=== PATIENT | male | born 1990 | race Caucasian/White ===

== ENCOUNTER 2018-05-05 09:21 | Day surgery (SDC) | payer OTHER ==
[2018-04-28 12:27] VITALS: BMI 28.5
--- NOTE | 2018-05-05 11:19 | OP ---
Operative Note - Note: Operative Date: 05/05/18 Pre-Operative Diagnosis: left knee medial meniscal tear Operation: left knee arthroscopy with partial medial menisectomy Post-Operative Diagnosis: Same as Pre-op Surgeon: Arvind Flaherty Operative Report Dictated: Yes
[2018-05-05] MEDS ORDERED: BUPIVACAINE HCL/PF 2.5 MG/ML - 30 ML VIAL IJ ONE (11:27)
[2018-05-05] MEDS ORDERED: BUPIVACAINE HCL/PF 0.25% (2.5MG/ML) 10 ML VIAL IJ ONE (12:10)
[2018-05-05] MEDS ORDERED: ONDANSETRON 4 MG/2 ML VIAL IVPUSH ONE (13:00)
[2018-05-05] MEDS ORDERED: ONDANSETRON 4 MG/2 ML VIAL ONE (13:02)
--- NOTE | 2018-05-05 13:24 | OP ---
DATE OF OPERATION: 05/05/2018 PREOPERATIVE DIAGNOSIS: Left medial meniscal tear. POSTOPERATIVE DIAGNOSIS: Left medial meniscal tear. PROCEDURE: Left knee arthroscopy with partial medial meniscectomy. SURGEON: Arvind Flaherty MD ANESTHESIA: General. POSTOPERATIVE CONDITION: Stable. COMPLICATIONS: None. INDICATIONS: This is a pleasant, 27-year-old gentleman who has been suffering from medial knee pain. MRI demonstrated bucket-handle medial meniscal tear. Treatment options including nonoperative versus operative management were reviewed. Operative risks were reviewed in detail including bleeding, infection, neurovascular injury, need for further surgery, postoperative pain and stiffness, progression of osteoarthritis. We discussed that meniscal repair would be a preferable treatment for this lesion. However, given the chronicity of his tear, the chance of successful meniscal repair was quite small. Patient voiced understanding. We also discussed medical risks such as heart attack, stroke, DVT, PE, and . I reviewed the postoperative rehabilitation. Patient voiced understanding again and elected to proceed. DESCRIPTION OF PROCEDURE: Patient was brought to the operating room where general anesthesia was administered. The left lower extremity was then prepped and draped in the usual sterile fashion. A preoperative dose of antibiotics was given, and the usual timeout procedure was performed. The standard portals were now marked out, injected subcutaneously with 0.25% Marcaine. An 11-blade was now used to establish a lateral portal. The arthroscope was passed into the knee. Examination of the patellofemoral joint demonstrated no lesions. Passing the arthroscope down to the notch demonstrated intact ACL and PCL. The arthroscope was now passed into the medial compartment. Here, medial portal was established under spinal needle localization. It should be noted that the meniscus was noted inside the notch. Examination of the medial joint demonstrated smoothing of the junction of the anterior horn of the meniscus and the bucketed segments. This was consistent with chronic tear. A probe was passed into the joint to try to reduce the meniscus. While I was able to pop it back into a more-reduced position, given its shape change, it did not lie smoothly within the joint. In addition, there was a large prominence at the hinge, which would have prevented proper reduction. The decision here was made to perform meniscectomy. Utilizing a combination of meniscal biters and a shaving device, the meniscus was debrided down to a stable base. The arthroscope was now passed into the lateral compartment. Here, no meniscal or articular lesions were seen. A probe was passed, and the meniscus was found to be stable. At this point, the excess fluid was withdrawn from the joint. The portals were sutured using 3-0 nylon. Sterile dressings were placed. Patient was extubated, transferred to recovery room in stable condition. Anne BERRIOS/[id number]
[2018-05-05 14:21] VITALS: TEMP 97.8
[2018-05-05 15:03] VITALS: BP 120/82; PULSE 62
[2018-05-05] MEDS ORDERED: oxyCODONE HCL 5 MG TABLET PO PRN (15:03)
[2018-05-05] MEDS ORDERED: ONDANSETRON 4 MG/2 ML VIAL IVPUSH PRN (15:03)
[2018-05-05] MEDS ORDERED: LACTATED RINGERS SOLUTION 1,000 ML IV SCH (15:15)
== END 2018-05-05 15:00 | disposition home or self-care (01) ==
LOC: FASU 09:21
PROVIDERS: ATTEND Orthopaedic Surgery Sports Medicine
PROC: 0SBD4ZZ Excision of Left Knee Joint, Percutaneous Endoscopic Approach (ICD-10-PCS; principal; 2018-05-05 10:30)
DX: S83.242A Other tear of medial meniscus, current injury, left knee, initial encounter (principal); X58.XXXA Exposure to other specified factors, initial encounter; Y93.9 Activity, unspecified; Y92.9 Unspecified place or not applicable
CPT/HCPCS: 94760

== ENCOUNTER 2019-04-28 08:33 | Emergency (ER) | payer OTHER ==
[2019-04-28 08:46] VITALS: BP 118/81; PULSE 75; TEMP 98.3; BMI 29.2
--- NOTE | 2019-04-28 08:47 | PDOC ---
History of Present Illness - General Chief Complaint: Injury Stated Complaint: POSSIBLE RIGHT ANKLE SPRAIN Time Seen by Provider: 04/28/19 08:42 History Source: Patient (Patient walked in complaining of right ankle pain since 4 days ago) Exam Limitations: No Limitations - History of Present Illness Is this a multiple visit Asthma Patient?: No Severity: mild, moderate Modifying Factors: improves with: cold therapy, rest Past History - Travel Traveled outside of the country in the last 30 days: No Close contact w/someone who was outside of country & ill: No - Past Medical History Allergies/Adverse Reactions: Allergies Allergy/AdvReac Type Severity Reaction Status Date / Time No Known Allergies Allergy Verified 04/28/19 08:34 Home Medications: Ambulatory Orders NK [No Known Home Medication] 04/28/19 Anemia: No Asthma: No Cancer: No Cardiac Disorders: No CVA: No COPD: No CHF: No Dementia: No Diabetes: No GI Disorders: No Disorders: No HTN: No Hypercholesterolemia: No Liver Disease: No Seizures: No Thyroid Disease: No - Immunization History Td Vaccination: No TDAP Vaccination: No Immunization Up to Date: No - Psycho Social/Smoking Cessation Hx Smoking History: Current every day smoker Have you smoked in the past 12 months: Yes Number of Cigarettes Smoked Daily: 10 Hx Alcohol Use: Yes (ONCE PER WEEK) Drug/Substance Use Hx: Yes (MARIJUANA 4X/PER WEEK) Substance Use Type: Alcohol, Marijuana Review of Systems - Review of Systems Able to Perform ROS?: Yes Is the patient limited [place] proficient: Yes Constitutional: No: Symptoms Reported, See HPI, Chills, Diaphoresis, Fever, Loss of Appetite, Malaise, Night Sweats, Weakness, Weight Stable, Unintentional Wgt. Loss, Unexplained wgt Loss, Other HEENTM: No: Symptoms Reported, See HPI, Eye Pain, Blurred Vision, Tearing, Recent change in vision, Double Vision, Cataracts, Ear Pain, Ocular Prothesis, Ear Discharge, Nose Pain, Nose Congestion, Tinnitus, Nose Bleeding, Hearing Loss , Throat Pain, Throat Swelling, Mouth Pain, Dental Problems, Difficulty Swallowing, Mouth Swelling, Other ABD/GI: No: Symptoms Reported, See HPI, Abdominal Distended, Abd. Pain w/ defecation, Blood Streaked Bowels, Constipated, Diarrhea, Difficulty Swallowing , Nausea, Poor Appetite, Poor Fluid Intake, Rectal Bleeding, Vomiting, Indigestion, Abdominal cramping, Tarry Stools, Other Musculoskeletal: Yes: See HPI, Joint Pain Integumentary: Yes: Symptoms Reported, Other (Abrasion right lateral maleola ) *Physical Exam - Physical Exam General Appearance: Yes: Nourished, Appropriately Dressed, Mild Distress, Moderate Distress HEENT: positive: CHARITO Neck: positive: Supple Vascular Pulses: Dorsalis-Pedis (R): 4+, Doralis-Pedis (L): 4+ Musculoskeletal: positive: Other (Pain right ankle) Extremity: positive: Normal Capillary Refill, Swelling (Mild to moderate swelling right ankle lateral aspect) Integumentary: positive: Normal Color, Dry, Warm, Bruising (Right lateral maleola abrasion) 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 NML intact, Fully Oriented, Alert, Normal Mood/ Affect Medical Decision Making - Medical Decision Making Based on clinical evaluation, injury and abrasion right ankle, X ray of anklem abrasion care and DTP Booster provided Paient denied any pain medication 04/28/19 09:04 Discharge - Discharge Information Problems reviewed: Yes Clinical Impression/Diagnosis: Ankle sprain Qualifiers: Encounter type: initial encounter Involved ligament of ankle: unspecified ligament Laterality: right Qualified Code(s): S93.401A - Sprain of unspecified ligament of right ankle, initial encounter Condition: Stable Disposition: HOME - Admission No - Follow up/Referral Referrals: Arvind Flaherty MD [Staff Physician] - - Patient Discharge Instructions Patient Printed Discharge Instructions: DI for Ankle Sprain Additional Instructions: Elevation, Rest If pain continues follow up wiith Ortho <D - Post Discharge Activity
[2019-04-28] MEDS ORDERED: DIPHTH,PERTUSS(ACELL),TET 0.5 ML DISP.SYRIN IM ONE ×2 (08:48→08:50)
== END 2019-04-28 09:31 | disposition home or self-care (01) ==
LOC: FER 08:33
PROC: 3E0234Z Introduction of Serum, Toxoid and Vaccine into Muscle, Percutaneous Approach (ICD-10-PCS; principal; 2019-04-28)
DX: S93.401A Sprain of unspecified ligament of right ankle, initial encounter (principal); X58.XXXA Exposure to other specified factors, initial encounter; Y93.89 Activity, other specified; Y92.89 Other specified places as the place of occurrence of the external cause; F17.210 Nicotine dependence, cigarettes, uncomplicated
CPT/HCPCS: 73610-TC-RT-FY; 90715; 99282-25

== ENCOUNTER 2019-09-24 03:32 | Emergency (ER) | payer OTHER ==
[2019-09-24 03:45] VITALS: BP 115/73; PULSE 100; TEMP 97.2; BMI 29.2
--- NOTE | 2019-09-24 04:00 | PDOC ---
History of Present Illness - General Chief Complaint: Injury Stated Complaint: HEAD INJURY Time Seen by Provider: 09/24/19 03:54 History Source: Patient Exam Limitations: No Limitations - History of Present Illness Initial Comments: 09/24/19 04:02 This is a 29-year-old male brought in by his girlfriend for evaluation of fall. Patient was at his 29th birthday libertarian and fell landing on his face. Patient denies any loss of consciousness, headache, nausea, dizziness, blurry vision or any neurological complaints. Patient is complaining of an abrasion to his face. Allergies: as per nursing notes Past Medical History: none Social history: Lives with family. No smoking. No alcohol. No illicit drugs. Surgical history: None General: No fevers or chills, no weakness, no weight loss HEENT: No change in vision. No sore throat,. No ear pain CardioVascular: no chest discomfort. No shortness of breath Respiratory:No cough, or wheezing. Gastrointestinal: no nausea, vomiting, diarrhea or constipation, No rectal bleeding Genitourinary: No dysuria, hematuria, or frequency Musculoskeletal: No joint or muscle pain or swelling Neurologic: No headache, vertigo, dizziness or loss of consciousness Psychiatric: nor depression Skin: No rashes or easy bruising Endocrine: no increased thirst or abnormal weight change Allergic: no skin or latex allergy All other systems reviewed and normal GENERAL: The patient is awake, alert, and fully oriented HEAD: There is an abrasion to the right side of the face and eyelid. There is no bony tenderness of the orbits or zygoma. There is no bleeding at this time EYES: Pupils equal, round and reactive to light, extraocular movements intact, sclera anicteric, conjunctiva clear. EXTREMITIES:atraumatic, Normal range of motion, no edema. NEUROLOGICAL: Normal speech, normal gait. Patient able to perform heel toe and tandem gait. Patient strength coordination and sensory is intact. PSYCH: Normal mood, normal affect. SKIN: Warm, Dry, normal turgor, no rashes or lesions noted. Assessment and plan: This is a 29-year-old male who comes in after falling. Patient abrasions were cleaned and his exam was negative for any bony tenderness as well as any neurological abnormalities. Patient discharged with significant other who was given head injury discharge instructions and she will stay with him tonight Past History - Past Medical History Allergies/Adverse Reactions: Allergies Allergy/AdvReac Type Severity Reaction Status Date / Time No Known Allergies Allergy Verified 04/28/19 08:34 Home Medications: Ambulatory Orders NK [No Known Home Medication] 04/28/19 Anemia: No Asthma: No Cancer: No Cardiac Disorders: No CVA: No COPD: No CHF: No Dementia: No Diabetes: No GI Disorders: No Disorders: No HTN: No Hypercholesterolemia: No Liver Disease: No Seizures: No Thyroid Disease: No - Immunization History Td Vaccination: Yes TDAP Vaccination: No Immunization Up to Date: No - Psycho Social/Smoking Cessation Hx Smoking History: Never smoked Have you smoked in the past 12 months: Yes Number of Cigarettes Smoked Daily: 10 Hx Alcohol Use: Yes (ONCE PER WEEK) Drug/Substance Use Hx: Yes (MARIJUANA 4X/PER WEEK) Substance Use Type: Alcohol, Marijuana *Physical Exam - Vital Signs Last Vital Signs Temp Pulse Resp BP Pulse Ox 97.2 F L 100 H 16 115/73 95 09/24/19 03:35 09/24/19 03:35 09/24/19 03:35 09/24/19 03:35 09/24/19 03:35 Discharge - Discharge Information Problems reviewed: Yes Clinical Impression/Diagnosis: Abrasion, face w/o infection Fall Qualifiers: Encounter type: initial encounter Qualified Code(s): W19.XXXA - Unspecified fall, initial encounter Condition: Stable Disposition: HOME - Admission No - Follow up/Referral Referrals: Tiffany Ramirez MD [Primary Care Provider] - - Patient Discharge Instructions Additional Instructions: For the pain take Tylenol 1000 mg as often this 3-4 times a day if needed. Someone to check on you once tonight during the night. You should be arousable to their normal level of arousability for that time of the night. If you have been vomiting, had a seizure, or you are unable to be aroused or there is a change in your mental status call 911 go back to the nearest emergency department. Take Tylenol as needed for pain. Followup with your primary care doctor Return to the emergency department immediately with ANY new, persistent or worsening symptoms. Continue any medications as previously prescribed by your physician. You should follow up with your primary doctor as soon as possible regarding today's emergency department visit. . Please make sure your doctor reviews the results of your emergency evaluation. Thank you for coming to the Emergency Department today for your care. It was a pleasure to see you today. Please note that your evaluation is INCOMPLETE until you follow-up with your doctor. - Post Discharge Activity
== END 2019-09-24 04:01 | disposition home or self-care (01) ==
LOC: FER 03:32
DX: S00.81XA Abrasion of other part of head, initial encounter (principal); W18.39XA Other fall on same level, initial encounter; Y93.89 Activity, other specified; Y92.89 Other specified places as the place of occurrence of the external cause
CPT/HCPCS: 99282-25

== ENCOUNTER 2023-11-29 19:23 | Emergency (ER) | payer OTHER ==
[2023-11-29 19:29] VITALS: BP 130/87; PULSE 98; RESP 17; TEMP 98.5; BMI 30.5
[2023-11-29] MEDS ORDERED: DIPHTH,PERTUSS(ACELL),TET 0.5 ML DISP.SYRIN IM ONE (19:40)
[2023-11-29] MEDS: DIPHTH,PERTUSS(ACELL),TET 0.5 ML DISP.SYRIN IM ONE (19:41)
== END 2023-11-29 19:43 | disposition home or self-care (01) ==
LOC: FER 19:23
PROC: 3E0234Z Introduction of Serum, Toxoid and Vaccine into Muscle, Percutaneous Approach (ICD-10-PCS; principal; 2023-11-29)
DX: S00.81XA Abrasion of other part of head, initial encounter (principal); Z23 Encounter for immunization; W26.8XXA Contact with other sharp object(s), not elsewhere classified, initial encounter
CPT/HCPCS: 90471; 90715; 99282-25